=== PATIENT | female | born 1950 | race Caucasian/White ===

== ENCOUNTER 2018-03-08 15:11 | Emergency (ER) | payer MEDICARE ==
[~2018-03-08] VITALS: Ht 157.5 cm; Wt 69.0 kg
[2018-03-08 16:21] VITALS: BP 148/92
== END 2018-03-08 16:24 | disposition home or self-care (01) ==
LOC: ED 16:00
DX: S00.411A Abrasion of right ear, initial encounter (principal); T63.441A Toxic effect of venom of bees, accidental (unintentional), initial encounter; Y92.89 Other specified places as the place of occurrence of the external cause; W57.XXXA Bitten or stung by nonvenomous insect and other nonvenomous arthropods, initial encounter; Y93.89 Activity, other specified; Y99.8 Other external cause status
CPT/HCPCS: 99283

== ENCOUNTER → 2020-01-29 | Outpatient (CLI) | payer MEDICARE | END | disposition home or self-care (01) | LOC: CFH 09:52 | DX: N63.11 Unspecified lump in the right breast, upper outer quadrant (principal); R92.8 Other abnormal and inconclusive findings on diagnostic imaging of breast | CPT/HCPCS: 76642; 77065; G0279 ==

== ENCOUNTER 2020-02-08 12:03 | Outpatient (CLI) | payer MEDICARE ==
[2020-02-08] MEDS ORDERED: LIDOCAINE 1%, 20ML ONE (13:17)
[2020-02-08] MEDS ORDERED: LIDOCAINE 1%-EPI 1:100K, 20ML ONE (13:17)
[2020-02-08] MEDS ORDERED: SODIUM BICARBONATE 4.2%, 5ML ONE (13:17)
== END 2020-02-08 23:59 | disposition home or self-care (01) ==
LOC: CFH 12:03
DX: N63.12 Unspecified lump in the right breast, upper inner quadrant (principal); C50.211 Malignant neoplasm of upper-inner quadrant of right female breast; Z17.0 Estrogen receptor positive status [ER+]
CPT/HCPCS: 19083; 77065; 88305; 88360; J3490; 19285

== ENCOUNTER → 2020-03-04 | Outpatient (CLI) | payer MEDICARE ==
[~2020-03-04] MED LIST: OMNIPAQUE 350 MG/ML, 100ML BOTTLE ONE
== END | disposition home or self-care (01) ==
LOC: RAD 09:23
PROVIDERS: ATTEND Radiology Radiation Oncology
DX: C50.411 Malignant neoplasm of upper-outer quadrant of right female breast (principal); M51.36 Other intervertebral disc degeneration, lumbar region; R59.9 Enlarged lymph nodes, unspecified
CPT/HCPCS: 71260; 74177; 78306; A9503; Q9967